=== PATIENT | male | born 1990 | race Caucasian/White ===

== ENCOUNTER 2020-02-24 16:29 | Emergency (ER) | payer OTHER, SELFPAY ==
[2020-02-24 16:32] VITALS: BP 148/89; PULSE 74; RESP 14; TEMP 36.4; O2SAT 97
--- NOTE | 2020-02-24 17:53 | DI.CT.S_ITS ---
PROCEDURE: CT KIDNEY URETER BLADDER (KUB) INDICATIONS: left flank pain with nausea TECHNIQUE: Noncontrast 5 mm thick sections acquired from the diaphragms to the symphysis. 5 mm thick coronal and sagittal reformats were then performed. For radiation dose reduction, the following was used: automated exposure control, adjustment of mA and/or kV according to patient size. COMPARISON: None. FINDINGS: Image quality: Excellent. Lung bases: Lung bases are clear. Heart size is normal. Urinary system: Both kidneys are normal in size. No kidney stones. No hydronephrosis or perinephric fat stranding. Both ureters appear non-dilated throughout their expected courses. Bladder wall thickness is normal; no calcified bladder stones. Other solid organs: Liver is normal in size. Gallbladder is normal. Pancreas is normal in contours. Spleen is normal in size. No adrenal nodules. Peritoneum and bowel: Stomach is mildly distended with an air-fluid level. Unenhanced bowel loops demonstrate normal wall thickness and caliber. Appendix is normal. No free fluid or air. Nodes and vessels: No retroperitoneal or mesenteric adenopathy by size criteria. Aorta and inferior vena cava are normal in caliber. Abdominal wall: No ventral hernias. Pelvis: No free pelvic fluid. No inguinal hernias or adenopathy. Bones: No suspicious bony lesions. No vertebral body compression fractures. IMPRESSION: 1. No renal stone or hydronephrosis. A cause for left flank pain is not identified. 2. Mild gastric distention with an air-fluid level. This finding is nonspecific and could be associated with gastritis. Recommend clinical correlation. Dictated by: Roger Mccormick M.D. on 02/24/2020 at 17:13 Approved by: Roger Mccormick M.D. on 02/24/2020 at 17:17
[2020-02-24 18:03] LABS: Prothrombin Time 11.9 SECONDS (10.1-12.7)
[2020-02-24 18:06] LABS: PTT Partial Thromboplastin Tim 29 SECONDS (26.4-36.2)
[2020-02-24] MEDS: KETOROLAC 60 MG/2 ML VIAL 15 MG IV (18:07)
[2020-02-24 18:08] LABS: Alanine Aminotransferase 40 IU/L (<50); Albumin 4.9 g/dL (3.5-5.0); Albumin Globulin Ratio 1.5 (1.0-2.8); Alkaline Phosphatase 68 U/L (38-126); Aspartate Aminotransferase 32 IU/L (17-59); BUN Creatinine Ratio 11.7 (6-22); Bilirubin Total 0.5 mg/dL (0.2-1.3); Blood Urea Nitrogen 12 mg/dL (9-20); Calcium 9.5 mg/dL (8.4-10.2); Carbon Dioxide 29 mmol/L (22-32); Chloride 103 mmol/L (98-107); Estimated Glomerular Filt Rate > 60.0 mL/min (>60); Globulin 3.2 g/dL (1.7-4.1); Glucose 88 mg/dL (70-100); HEMOLYSIS 16 (0-50); Lipase 203 U/L (23-300); Potassium 4.1 mmol/L (3.4-5.1); Sodium 139 mmol/L (137-145); Total Protein 8.1 g/dL (6.3-8.2)
[2020-02-24 18:23] LABS: Add Manual Diff / Slide Review NO; Basophils Absolute Auto 0 /uL (0-100); Basophils Percent Auto 0.4 % (0-2); Eosinophils Absolute Auto 800 /uL (0-450); Eosinophils Percent Auto 12.6 % (2-4); Hematocrit 44.4 % (41-53); Hemoglobin 15.2 g/dL (13.5-17.5); Lymphocytes Absolute Auto 1400 /uL (1100-4500); Lymphocytes Percent Auto 21.1 % (25-40); Mean Corpuscular HGB Conc 34.1 % (30-36); Mean Corpuscular Hemoglobin 29.9 PG (26-34); Mean Corpuscular Volume 87.5 fL (80-100); Monocytes Absolute Auto 600 /uL (0-900); Monocytes Percent Auto 9.1 % (3-14); Neutrophils Absolute Auto 3800 /uL (1500-7000); Neutrophils Percent Auto 56.8 % (50-75); Platelet Count 242 X10^3/uL (150-400); Red Blood Cell Count 5.08 X10^6/uL (4.5-5.9); Red Cell Distribution Width 12.9 % (11.6-14.8); White Blood Cell Count 6.7 X10^3/uL (4.5-11.0)
[2020-02-24 19:09] VITALS: BP 123/68; PULSE 66; RESP 16; O2SAT 99
--- NOTE | 2020-02-24 23:04 | ED.BACK ---
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 Patient denies known injury or trauma to his back or history of chronic back pain. Patient reports nausea with sharp and shooting back pain but denies vomiting. Denies urinary symptoms such as urgency, frequency, dysuria, or hematuria. Patient denies rash, fever or chills. Patient denies aggravating or relieving associated factors. He rates pain as 7/10 and located in deep and has not tried medications for this at home. He states has family history of renal stones in his father and paternal grandfather and concerned. Related Data Allergies Allergy/AdvReac Type Severity Reaction Status Date / Time Sulfa (Sulfonamide Allergy Unknown Unverified 10/16/17 12:45 Antibiotics) [SULFA (SULFONAMIDE ANTIBIOTICS)] Review of Systems <SANDIE Pineda - Last Filed: 02/24/20 23:23> Review of Systems Narrative: General: Denies fever, chills, fatigue, malaise, sweats. HEENT: Denies sinus pain, ear pain, sore throat, difficulty swallowing, dizziness. Respiratory: Denies dyspnea, cough, wheezing, hemoptysis, sputum. Cardiovascular: Denies chest pain, palpitations, orthopnea, edema. Gastrointestinal: Denies nausea, vomiting, abdominal pain, diarrhea, constipation, melena. : Denies dysuria, frequency, incontinence, hematuria, urinary retention. Musculoskeletal: See HPI Skin: Denies rash, skin lesions, or other. Neurologic: Denies weakness, headache, numbness, change in speech, confusion, seizures, incoordination. Psychiatric: No concerning psychosocial issues. 12-point review of systems is negative except for those stated above. Patient History <SANDIE Pineda - Last Filed: 02/24/20 23:23> Medical History No significant past medical history (Acute) Surgical History History of tonsillectomy (Acute) Social History Smoking Status: Never smoker Smoking Status: Never smoker alcohol intake frequency: a few times a month Substance Use Type: does not use Exam <SANDIE Pineda - Last Filed: 02/24/20 23:23> Narrative Exam Narrative: General appearance: well developed, well nourished, in no acute distress. Head: normocephalic, atraumatic, no scalp lesions, non-tender. ENT: Hearing grossly intact. Airway patent. Neck/Thyroid: neck supple, full range of motion, no visible masses or meningeal signs. No JVD, non-tender without lymphadenopathy. Skin: no suspicious rashes, lesions over visible areas. Warm and dry and appropriate color for ethnicity. Heart: no clubbing, no cyanosis, no edema. S1 and S2 normal. RRR w/o murmurs, clicks, or bruits. Lungs: Breathing even and unlabored. No stridor. No accessory muscles used. Able to speak in full sentences. Chest: normal shape and expansion. Abdomen: non-obese, non-distended, soft, non-tender to palpate. No rebound tenderness or guarding. Bowel sounds intact in 4 quadrants. No organomegaly. Neurologic: alert and oriented. 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 Psych: good eye contact, normal affect. Initial Vital Signs Initial Vital Signs: Vital Signs Temperature 97.6 F 02/24/20 16:32 Pulse Rate 74 02/24/20 16:32 Respiratory Rate 14 02/24/20 16:32 Blood Pressure 148/89 H 02/24/20 16:32 Pulse Oximetry 97 02/24/20 16:32 Back/Spine/Pelvis Back: normal to inspection, back tenderness (left flank), No CVA tenderness, No ecchymosis, No erythema, No mass and No warmth Thoracic/Lumbar Spine: thoracic and lumbar spine normal to inspection, No paraspinal tenderness, No thoraco-lumbar ROM limited, No thoraco-lumbar spasm, No thoracic spinal tenderness, No lumbar spinal tenderness and straight leg raise positive (left leg) <Power Rizzo MD - Last Filed: 03/01/20 03:56> Initial Vital Signs Initial Vital Signs: Vital Signs Temperature 97.6 F 02/24/20 16:32 Pulse Rate 74 02/24/20 16:32 Respiratory Rate 14 02/24/20 16:32 Blood Pressure 148/89 H 02/24/20 16:32 Pulse Oximetry 97 02/24/20 16:32 Scores <SANDIE Pineda - Last Filed: 02/24/20 23:23> GCS [place] coma scale eye opening: Spontaneous [place] coma scale verbal response: Orientated [place] coma scale motor response: Obey commands [place] coma scale total score: 15 Course <SANDIE Pineda - Last Filed: 02/24/20 23:23> Orders Ordered: Discontinued Medications Ketorolac Tromethamine (Toradol) 15 mg IV NOW ONE Stop: 02/24/20 17:54 Last Admin: 02/24/20 18:07 Dose: 15 mg Documented by: BTONER Vital Signs Vital signs: Vital Signs - 8 hr 02/24/20 16:32 02/24/20 19:09 Temperature 97.6 F Pulse Rate 74 66 Respiratory Rate 14 16 Blood Pressure 148/89 H 123/68 Pulse Oximetry 97 99 <Power Rizzo MD - Last Filed: 03/01/20 03:56> Orders Ordered: Discontinued Medications Ketorolac Tromethamine (Toradol) 15 mg IV NOW ONE Stop: 02/24/20 17:54 Last Admin: 02/24/20 18:07 Dose: 15 mg Documented by: BTONER Vital Signs Vital signs: Vital Signs - 8 hr 02/24/20 16:32 02/24/20 19:09 Temperature 97.6 F Pulse Rate 74 66 Respiratory Rate 14 16 Blood Pressure 148/89 H 123/68 Pulse Oximetry 97 99 MDM - Back Pain/Injury <SANDIE Pineda - Last Filed: 02/24/20 23:23> Differential Diagnosis Differential diagnosis: Likely strain of lumbar region, renal colic and pyelonephritis Medical Records Attestation: I reviewed the patient's medical records. Lab Data Attestation: I reviewed the patient's lab results. Result diagrams: 02/24/20 17:45 02/24/20 17:45 Labs: Lab Results 02/24/20 02/24/20 02/24/20 Range/Units 17:45 17:45 17:45 WBC 6.7 (4.5-11.0) X10^3/uL RBC 5.08 (4.5-5.9) X10^6/uL Hgb 15.2 (13.5-17.5) g/dL Hct 44.4 (41-53) % MCV 87.5 (80-100) fL MCH 29.9 (26-34) PG MCHC 34.1 (30-36) % RDW 12.9 (11.6-14.8) % Plt Count 242 (150-400) X10^3/uL Neut % (Auto) 56.8 (50-75) % Lymph % (Auto) 21.1 L (25-40) % [place] % (Auto) 9.1 (3-14) % Eos % (Auto) 12.6 H (2-4) % Baso % (Auto) 0.4 (0-2) % Neut # (Auto) 3800 (3806-6965) /uL Lymph # (Auto) 1400 (5689-6841) /uL [place] # (Auto) 600 (0-900) /uL Eos # (Auto) 800 H (0-450) /uL Baso # (Auto) 0 (0-100) /uL PT 11.9 (10.1-12.7) SECONDS INR 1.0 (0.9-1.3) APTT 29 (26.4-36.2) SECONDS Sodium 139 (137-145) mmol/L Potassium 4.1 (3.4-5.1) mmol/L Chloride 103 (98-107) mmol/L Carbon Dioxide 29 (22-32) mmol/L BUN 12 (9-20) mg/dL Creatinine 1.03 (0.66-1.25) mg/dL Estimated GFR > 60.0 (>60) mL/min BUN/Creatinine Ratio 11.7 (6-22) Glucose 88 (70-100) mg/dL Calcium 9.5 (8.4-10.2) mg/dL Total Bilirubin 0.5 (0.2-1.3) mg/dL AST 32 (17-59) IU/L ALT 40 (<50) IU/L Alkaline Phosphatase 68 (38-126) U/L Total Protein 8.1 (6.3-8.2) g/dL Albumin 4.9 (3.5-5.0) g/dL Globulin 3.2 (1.7-4.1) g/dL Albumin/Globulin Ratio 1.5 (1.0-2.8) Lipase 203 (23-300) U/L Urine Dip Bedside Urine Glucose Negative Bedside Urine Bilirubin - Negative Bedside Urine Ketone - Negative Urine Specific [place] 1.005 Bedside Urine Occult Blood - Negative Bedside Urine pH 6.5 Bedside Urine Protein - Negative Bedside Urine Urobilinogen - Negative Bedside Urine Nitrite - Negative Bedside Urine Leukocytes - Negative Esterase Imaging Data CT-KUB: Radiologist's Impression: [address] [address] [address] Scan Report Signed Patient: Andrew Connor JMR#: [id number] : 1990Acct:[id number] Age/Sex: te of Service: 02/24/20 Loc: ED Accession Number: [id number] Procedure: CT kidney ureter bladder (KUB) Ordering Provider: Jorge Gama PROCEDURE: CT KIDNEY URETER BLADDER (KUB) INDICATIONS: left flank pain with nausea TECHNIQUE: Noncontrast 5 mm thick sections acquired from the diaphragms to the symphysis. 5 mm thick coronal and sagittal reformats were then performed. For radiation dose reduction, the following was used: automated exposure control, adjustment of mA and/or kV according to patient size. COMPARISON: None. FINDINGS: Image quality: Excellent. Lung bases: Lung bases are clear. Heart size is normal. Urinary system: Both kidneys are normal in size. No kidney stones. No hydronephrosis or perinephric fat stranding. Both ureters appear non-dilated throughout their expected courses. Bladder wall thickness is normal; no calcified bladder stones. Other solid organs: Liver is normal in size. Gallbladder is normal. Pancreas is normal in contours. Spleen is normal in size. No adrenal nodules. Peritoneum and bowel: Stomach is mildly distended with an air-fluid level. Unenhanced bowel loops demonstrate normal wall thickness and caliber. Appendix is normal. No free fluid or air. Nodes and vessels: No retroperitoneal or mesenteric adenopathy by size criteria. Aorta and inferior vena cava are normal in caliber. Abdominal wall: No ventral hernias. Pelvis: No free pelvic fluid. No inguinal hernias or adenopathy. Bones: No suspicious bony lesions. No vertebral body compression fractures. IMPRESSION: 1. No renal stone or hydronephrosis. A cause for left flank pain is not identified. 2. Mild gastric distention with an air-fluid level. This finding is nonspecific and could be associated with gastritis. Recommend clinical correlation. Dictated by: Roger Mccormick M.D. on 02/24/2020 at 17:13 Approved by: Roger Mccormick M.D. on 02/24/2020 at 17:17 MDM Narrative Medical decision making narrative: This is a 30-year-old male who presents to ED with new onset left-side/flank pain since this morning with nausea. Patient denies known injury or trauma to his back, or urinary symptoms. Patient is afebrile with within normal vital signs. Urine test does not appears to be having on infection, no hematuria. Physical exam was unremarkable. No lumbar spinous or paraspinous tenderness to palpate, no CVA tenderness per percussion. No leukocytosis. Chemistry test including renal function within normal limits. KUB CT test of renal stones or hydronephrosis but concerns for mild gastric distention with air-fluid level indicating possible gastritis. However, patient does not have any GI discomfort or nausea/vomiting at this time. It is likely that his pain is due to musculoskeletal in origin. Patient was medicated with IV Toradol for recurring left back/flank pain which was effective to treat the discomfort. Patient advised to use [id number] Tylenol and or Motrin as needed for discomfort. Discussed Return precautions with patient and he verbalized understanding and in agreement with treatment plan. <Power Rizzo MD - Last Filed: 03/01/20 03:56> Lab Data Labs: Lab Results 02/24/20 02/24/20 02/24/20 Range/Units 17:45 17:45 17:45 WBC 6.7 (4.5-11.0) X10^3/uL RBC 5.08 (4.5-5.9) X10^6/uL Hgb 15.2 (13.5-17.5) g/dL Hct 44.4 (41-53) % MCV 87.5 (80-100) fL MCH 29.9 (26-34) PG MCHC 34.1 (30-36) % RDW 12.9 (11.6-14.8) % Plt Count 242 (150-400) X10^3/uL Neut % (Auto) 56.8 (50-75) % Lymph % (Auto) 21.1 L (25-40) % [place] % (Auto) 9.1 (3-14) % Eos % (Auto) 12.6 H (2-4) % Baso % (Auto) 0.4 (0-2) % Neut # (Auto) 3800 (6496-2703) /uL Lymph # (Auto) 1400 (4868-4972) /uL [place] # (Auto) 600 (0-900) /uL Eos # (Auto) 800 H (0-450) /uL Baso # (Auto) 0 (0-100) /uL PT 11.9 (10.1-12.7) SECONDS INR 1.0 (0.9-1.3) APTT 29 (26.4-36.2) SECONDS Sodium 139 (137-145) mmol/L Potassium 4.1 (3.4-5.1) mmol/L Chloride 103 (98-107) mmol/L Carbon Dioxide 29 (22-32) mmol/L BUN 12 (9-20) mg/dL Creatinine 1.03 (0.66-1.25) mg/dL Estimated GFR > 60.0 (>60) mL/min BUN/Creatinine Ratio 11.7 (6-22) Glucose 88 (70-100) mg/dL Calcium 9.5 (8.4-10.2) mg/dL Total Bilirubin 0.5 (0.2-1.3) mg/dL AST 32 (17-59) IU/L ALT 40 (<50) IU/L Alkaline Phosphatase 68 (38-126) U/L Total Protein 8.1 (6.3-8.2) g/dL Albumin 4.9 (3.5-5.0) g/dL Globulin 3.2 (1.7-4.1) g/dL Albumin/Globulin Ratio 1.5 (1.0-2.8) Lipase 203 (23-300) U/L Urine Dip Bedside Urine Glucose Negative Bedside Urine Bilirubin - Negative Bedside Urine Ketone - Negative Urine Specific [place] 1.005 Bedside Urine Occult Blood - Negative Bedside Urine pH 6.5 Bedside Urine Protein - Negative Bedside Urine Urobilinogen - Negative Bedside Urine Nitrite - Negative Bedside Urine Leukocytes - Negative Esterase Discharge Plan Departure Patient Disposition: Home Clinical Impression: Back pain Qualifiers: Back pain location: low back pain Chronicity: acute Back pain laterality: left Sciatica presence: without sciatica Qualified Code(s): M54.5 - Low back pain Discharge Date/Time: 02/24/20 19:12 Instructions: DI for Low Back Pain Activity Restrictions/Additional Instructions: You have been diagnosed with [left low back pain. Blood test, urine test are assuring. CT KUB test does not show renal stones or hydronephrosis.]. What to do: *Take your medications as directed. You were given Toradol in ED which improved discomfort. You can take [id number] Tylenol and or Motrin as needed for discomfort. Tylenol 650-1000 mg up to 3 to 4 times a day as needed for pain. Ibuprofen/Motrin 400 mg up to 3 to 4 times a day as needed for pain with food to decrease GI irritation. *Follow up with your primary care provider in 2-3 days, call for an appointment. Let them know you were seen in the ED and that we asked you to be seen in follow up. *Return to ED if you have any new, worsening, or concerning symptoms, such as [worsening pain, chest pain, breathing difficulty, unable to tolerate fluids, rash on her back, fever, urinary symptoms or any acute concerns]. Referrals: [facility] [Outside] <Power Rizzo MD - Last Filed: 03/01/20 03:56> [facility]: I was immediately available in the department for consultation. This documentation has been reviewed and I agree with assessment and plan. Supervised by Power Rizzo MD
== END 2020-02-24 19:12 | disposition home or self-care (01) ==
PROVIDERS: Emergency Medicine; Emergency Provider Nurse Practitioner Family
DX: M54.5 Low back pain (principal); R11.0 Nausea
CPT/HCPCS: 36415; 74176; 80053; 81003; 83690; 85025; 85610; 85730; 96374; 99284; J1885